=== PATIENT | female | born 1990 | race Hispanic/Latino ===

== ENCOUNTER 2016-06-10 14:27 | Emergency (ER) | payer MEDICAID ==
[2016-06-10 15:55] LABS: Bilirubin,Urine NEG (Negative); Blood,Urine SM (Negative); Ketones,Urine NEG (Negative); Leukocyte Esterase,Urine NEG (Negative); Mucus,Urine FEW /HPF; Nitrite,Urine NEG (Negative); Protein,Urine <15 mg/dL mg/dL (Negative); Urobilinogen,Urine < 2.0 mg/dL (<2.0)
[2016-06-10 16:06] LABS: Basophils % (Auto) 0.5 % (0.0-1.8); Eosinophils % (Auto) 0.5 % (0.0-4.3); Hematocrit 40.4 % (30.3-42.9); Hemoglobin 13.5 gm/dl (10.1-14.3); Mean Corpuscular HGB Conc 33 % (30-34); Mean Corpuscular Hemoglobin 31 pg (28-32); Mean Corpuscular Volume 92 fl (79-97); Platelet Count 252 K/mm3 (140-440); Red Blood Count 4.38 M/mm3 (3.65-5.03); Red Cell Distribution Width 13.1 % (13.2-15.2)
--- NOTE | 2016-06-10 19:06 | Ultrasound Report ---
FINAL REPORT PROCEDURE: Transabdominal pelvic ultrasound. TECHNIQUE: Real-time transabdominal sonography in multiple planes of pelvis was performed with image documentation. This examination was performed without Doppler. Vascular abnormalities, including ovarian torsion, will not be detectable without Doppler evaluation. CPT 81861 HISTORY: Pelvic pain, possible twin at outside facility. COMPARISON: No prior studies are available for comparison. FINDINGS: The image quality is extremely limited due to the patient's obesity and the fact that the bladder was not distended. The uterus appears retroverted. The uterus measures approximately 8.6 centimeters x 5.1 centimeters x 5.6 centimeters. The myometrium is grossly normal. There is no visible gestational sac. Neither ovary is identified. IMPRESSION: Grossly normal uterus. Very limited study.
--- NOTE | 2016-06-10 19:12 | Ultrasound Report ---
FINAL REPORT PROCEDURE: Transvaginal obstetrical ultrasound. TECHNIQUE: Real-time transvaginal sonography of the uterus, placenta, amniotic fluid, adnexa, and fetus was performed with image documentation. Measurements were obtained to determine age/size. M-mode Doppler was used to document heartbeat. CPT 91936 HISTORY: Lower abdominal pain, vaginal bleeding. COMPARISON: No prior studies are available for comparison. FINDINGS: The uterus measures 8.6 centimeters x 5.1 centimeters x 5.6 centimeters. The myometrium appears normal. The uterus is retroverted. There is an intrauterine fluid collection consistent with a gestational sac. A yolk sac and pole are not visible however. The mean gestational sac diameter is 2.2 centimeters. This indicates a menstrual age of 7 weeks 1 day. Correlation with a quantitative beta HCG value is recommended. This may represent a blighted ovum. The right ovary appears normal in size and has normal color flow signal. The left ovary is not visualized. IMPRESSION: Intrauterine fluid collection consistent with a gestational sac. Possible blighted ovum.
[2016-06-10 21:03] VITALS: BP 118/72
--- NOTE | 2016-06-10 21:09 | Emergency Department Report ---
ED General Adult HPI - General Chief complaint: Vaginal Bleeding Stated complaint: VAG BLEED/8WKS PREG Time Seen by Provider: 06/10/16 20:43 Source: patient, RN notes reviewed, old records reviewed Mode of arrival: Ambulatory Limitations: No Limitations - History of Present Illness Initial comments: This is a 26-year-old female. She is previously unknown to me. She is 3, para 1. Last menstrual period is March 24. Has a history of spontaneous miscarriage. Reports that on May 20 she had a transvaginal ultrasound as an outpatient which demonstrated a twin gestation. She reports that she comes to the ER today complaining of cramping and vaginal spotting. This has been present for the past 3 days. Positive clots. Positive nausea but no vomiting. No irritative or obstructive urinary symptoms. No chest pain or shortness of breath. Mild abdominal cramping and discomfort, no fevers. No recent vigorous sexual activity. -: Gradual Location: pelvis Quality: aching Consistency: intermittent Improves with: rest Worsens with: movement Associated Symptoms: nausea/vomiting. denies: confusion, chest pain, cough, diaphoresis, fever/chills - Related Data Home Medications Medication Instructions Recorded Confirmed Last Taken Vit No.130/Iron/FA 1 each PO QDAY 06/10/16 06/10/16 06/10/16 09:00 [ Tablet] Allergies Allergy/AdvReac Type Severity Reaction Status Date / Time No Known Allergies Allergy Unverified 06/10/16 15:10 ED Review of Systems ROS: Stated complaint: VAG BLEED/8WKS PREG Other details as noted in HPI Constitutional: denies: fever, malaise Eyes: denies: vision change ENT: denies: epistaxis Respiratory: denies: orthopnea, shortness of breath Gastrointestinal: abdominal pain Genitourinary: abnormal menses Musculoskeletal: back pain Skin: denies: lesions Neurological: denies: headache Psychiatric: anxiety ED Past Medical Hx - Past Medical History Previous Medical History?: No - Surgical History Past Surgical History?: No - Social History Smoking Status: Never Smoker Substance Use Type: None - Medications Home Medications: Home Medications Medication Instructions Recorded Confirmed Last Taken Type Vit No.130/Iron/FA 1 each PO QDAY 06/10/16 06/10/16 06/10/16 09:00 History [ Tablet] ED Physical Exam - General Limitations: No Limitations, Other (the patient declines a gynecologic examination at this time.) General appearance: alert, in no apparent distress - Head Head exam: Present: atraumatic, normocephalic - Eye Eye exam: Present: normal appearance, EOMI. Absent: nystagmus - ENT ENT exam: Present: normal exam, normal orophraynx, mucous membranes moist, normal external ear exam - Neck Neck exam: Present: normal inspection, full ROM. Absent: tenderness, meningismus - Respiratory Respiratory exam: Present: normal lung sounds bilaterally. Absent: respiratory distress, wheezes, rales, rhonchi, stridor, chest wall tenderness, accessory muscle use, decreased breath sounds, prolonged expiratory - Cardiovascular Cardiovascular Exam: Present: regular rate, normal rhythm, normal heart sounds. Absent: bradycardia, tachycardia, irregular rhythm, systolic murmur, diastolic murmur, rubs, gallop - GI/Abdominal GI/Abdominal exam: Present: soft, normal bowel sounds, other (there is no rebound, guarding or peritoneal signs. There is specifically no right lower quadrant tenderness or rebound.). Absent: distended, tenderness, guarding, rebound, rigid, pulsatile mass - Extremities Exam Extremities exam: Present: normal inspection - Back Exam Back exam: Present: normal inspection, full ROM. Absent: tenderness, CVA tenderness (R), CVA tenderness (L), muscle spasm, paraspinal tenderness, vertebral tenderness - Neurological Exam Neurological exam: Present: alert, oriented X3, normal gait, other (Extraocular movements intact. Tongue midline. No facial droop. Facial sensation intact to light touch in the V1, V2, V3 distribution bilaterally. 5 and 5 strength in 4 extremities.. Sensation is intact to light touch in 4 extremities.). Absent : motor sensory deficit - Psychiatric Psychiatric exam: Present: normal affect, normal mood - Skin Skin exam: Present: warm, dry, intact, normal color. Absent: rash ED Course Vital Signs 06/10/16 06/10/16 06/10/16 15:11 20:35 20:57 Temperature 98.1 F Pulse Rate 87 88 Respiratory 17 23 Rate Blood Pressure 136/74 O2 Sat by Pulse 100 99 99 Oximetry 06/10/16 06/10/16 21:00 21:35 Temperature Pulse Rate 97 H Respiratory 32 H Rate Blood Pressure 118/72 118/72 O2 Sat by Pulse 100 Oximetry - Reevaluation(s) Reevaluation #1: 06/10/16 21:26 differential diagnosis: Inevitable miscarriage, threatened miscarriage, urinary tract infection Assessment and plan: 26-year-old female with reported history of outpatient twinges station confirmed on ultrasound May 20. Comes in with 3 days of vaginal spotting and cramping. Intrauterine ultrasound demonstrates a fluid collection suggestive of gestational sac. No heart rate is noted. Patient reports that she was verbally instructed that her previous ultrasound did demonstrate a heart rate. Symptoms most likely consistent with miscarriage. Case is discussed with nurse slubber frame changer Radha Angeles, for my OB/ [facility] [employer] [facility]. Patient has an appointments tomorrow, [address] Adan at 10: 45 in the morning, at the [facility]. Patient is instructed to rest and avoid heavy lifting, avoid strenuous physical activity, and to follow-up with Dr. Adan. She will be discharged at this time. Rh+. No indication for RhoGAM therapy. ED Medical Decision Making - Lab Data Result diagrams: 06/10/16 15:29 Vital Signs 06/10/16 06/10/16 06/10/16 15:11 20:35 20:57 Temperature 98.1 F Pulse Rate 87 88 Respiratory 17 23 Rate Blood Pressure 136/74 O2 Sat by Pulse 100 99 99 Oximetry 06/10/16 21:00 Temperature Pulse Rate 97 H Respiratory 32 H Rate Blood Pressure 118/72 O2 Sat by Pulse 100 Oximetry Lab Results 06/10/16 06/10/16 06/10/16 Range/Units 15:29 15:29 15:29 WBC 8.0 (4.5-11.0) K/mm3 RBC 4.38 (3.65-5.03) M/mm3 Hgb 13.5 (10.1-14.3) gm/dl Hct 40.4 (30.3-42.9) % MCV 92 (79-97) fl MCH 31 (28-32) pg MCHC 33 (30-34) % RDW 13.1 L (13.2-15.2) % Plt Count 252 (140-440) K/mm3 Lymph % (Auto) 25.9 (13.4-35.0) % Osborne % (Auto) 8.0 H (0.0-7.3) % Eos % (Auto) 0.5 (0.0-4.3) % Baso % (Auto) 0.5 (0.0-1.8) % Lymph # 2.1 (1.2-5.4) K/mm3 Osborne # 0.6 (0.0-0.8) K/mm3 Eos # 0.0 (0.0-0.4) K/mm3 Baso # 0.0 (0.0-0.1) K/mm3 Seg Neutrophils % 65.1 (40.0-70.0) % Seg Neutrophils # 5.2 (1.8-7.7) K/mm3 HCG, Quant 9354 H (0-4) mIU/mL Urine Color (Yellow) Urine Turbidity (Clear) Urine pH (5.0-7.0) Ur Specific Dorsey (1.003-1.030) Urine Protein (Negative) mg/dL Urine Glucose (UA) (Negative) mg/dL Urine Ketones (Negative) mg/dL Urine Blood (Negative) Urine Nitrite (Negative) Urine Bilirubin (Negative) Urine Urobilinogen (<2.0) mg/dL Ur Leukocyte Esterase (Negative) Urine WBC (Auto) (0.0-6.0) /HPF Urine RBC (Auto) (0.0-6.0) /HPF U Epithel Cells (Auto) (0-13.0) /HPF Urine Mucus /HPF Blood Type B POSITIVE Antibody Screen Negative 06/10/16 Range/Units Unknown WBC (4.5-11.0) K/mm3 RBC (3.65-5.03) M/mm3 Hgb (10.1-14.3) gm/dl Hct (30.3-42.9) % MCV (79-97) fl MCH (28-32) pg MCHC (30-34) % RDW (13.2-15.2) % Plt Count (140-440) K/mm3 Lymph % (Auto) (13.4-35.0) % Osborne % (Auto) (0.0-7.3) % Eos % (Auto) (0.0-4.3) % Baso % (Auto) (0.0-1.8) % Lymph # (1.2-5.4) K/mm3 Osborne # (0.0-0.8) K/mm3 Eos # (0.0-0.4) K/mm3 Baso # (0.0-0.1) K/mm3 Seg Neutrophils % (40.0-70.0) % Seg Neutrophils # (1.8-7.7) K/mm3 HCG, Quant (0-4) mIU/mL Urine Color Yellow (Yellow) Urine Turbidity Clear (Clear) Urine pH 7.0 (5.0-7.0) Ur Specific Dorsey 1.014 (1.003-1.030) Urine Protein <15 mg/dl (Negative) mg/dL Urine Glucose (UA) Neg (Negative) mg/dL Urine Ketones Neg (Negative) mg/dL Urine Blood Sm (Negative) Urine Nitrite Neg (Negative) Urine Bilirubin Neg (Negative) Urine Urobilinogen < 2.0 (<2.0) mg/dL Ur Leukocyte Esterase Neg (Negative) Urine WBC (Auto) 1.0 (0.0-6.0) /HPF Urine RBC (Auto) 4.0 (0.0-6.0) /HPF U Epithel Cells (Auto) < 1.0 (0-13.0) /HPF Urine Mucus Few /HPF Blood Type Antibody Screen - Radiology Data Radiology results: report reviewed, image reviewed Transvaginal ultrasound demonstrates intrauterine fluid collection, likely gestational sac, possible blighted ovum, no twin gestation is noted. Critical care attestation.: If time is entered above; I have spent that time in minutes in the direct care of this critically ill patient, excluding procedure time. ED Disposition Clinical Impression: Miscarriage Disposition: DISCHARGED TO HOME OR SELFCARE Is pt being admited?: No Does the pt Need Aspirin: No Condition: Stable Instructions: Spontaneous Miscarriage (ED) Additional Instructions: S and avoid heavy lifting. Avoid strenuous physical activity. Do not engage in sexual activity. Follow-up with Dr. Adan tomorrow, June 11, 10:45 in the morning for follow-up appointment. Return to the ER right away with new pain, worsening pain, migration of pain, fevers or chills, intractable nausea or vomiting, inability to tolerate liquid feeds. Referrals: PRIMARY CARE, [Primary Care Provider] - 3-5 Days JONATHAN ADAN MD [Staff Physician] - 3-5 Days
== END 2016-06-10 21:40 | disposition home or self-care (01) ==
LOC: ED 14:27
DX: O03.9 Complete or unspecified spontaneous abortion without complication (principal); Z3A.08 8 weeks gestation of pregnancy
CPT/HCPCS: 36415; 76801; 76817; 81001; 84702; 85025; 86850; 86900; 86901